=== PATIENT | female | born 1955 | race Hispanic/Latino ===

== ENCOUNTER 2023-12-27 13:55 | Outpatient (RCR) | payer MEDICARE | END 2023-12-30 | LOC: PT 13:55 | PROVIDERS: ATTEND Student in an Organized Health Care Education/Training Program | DX: M54.6 Pain in thoracic spine (principal) ==

== ENCOUNTER 2024-01-31 10:49 | Outpatient (RCR) | payer MEDICARE | END 2024-02-29 | LOC: PT 10:49 | PROVIDERS: ATTEND Student in an Organized Health Care Education/Training Program | DX: M54.6 Pain in thoracic spine (principal); M54.50 Low back pain, unspecified ==

== ENCOUNTER → 2025-02-23 | Outpatient (REF) | payer MEDICARE | LOC: US 08:55 | PROVIDERS: ATTEND Nurse Practitioner Family | DX: R74.8 Abnormal levels of other serum enzymes (principal) | CPT/HCPCS: 76705 ==

== ENCOUNTER → 2025-08-01 | Outpatient (REF) | payer MEDICARE | LOC: US 08:39 | PROVIDERS: ATTEND Nurse Practitioner Family | DX: K82.4 Cholesterolosis of gallbladder (principal) | CPT/HCPCS: 76705 ==